=== PATIENT | female | born 1995 | race Caucasian/White ===

== ENCOUNTER → 2020-10-16 10:57 | Outpatient (BNVA) | payer BC, SELFPAY | PROVIDERS: Visit Provider Advanced Practice Midwife | DX: Z76.89 Persons encountering health services in other specified circumstances (principal) ==

== ENCOUNTER 2020-10-25 10:42 | Outpatient (REF) | payer BC, SELFPAY ==
--- NOTE | 2020-10-25 10:49 | US_ITS ---
EXAMINATION: OBSTETRICAL ULTRASOUND, FIRST TRIMESTER HISTORY: 25-year-old with secondary amenorrhea Viability evaluation LMP: 09/16/2020 COMPARISON: None TECHNIQUE: Real time transabdominal imaging with color and M-mode Doppler. Transvaginal ultrasound was performed using an endovaginal probe. FINDINGS: Small intrauterine gestational sac measuring 0.3 x 0.34 cm is seen. The mean sac diameter corresponds to a 4.6 weeks of gestation. There is no yolk sac or embryo. This can be consistent with very early gestational age. Right ovary is within normal limits. The scope was consistent last period GESTATIONAL AGE: 1. GA from LMP: 5.4 wks 2. GA from AUA: 4.6 wks ESTIMATED DATE OF DELIVERY: 1. BECKIE from LMP: 06/23/2021 2. BECKIE from AUA: 06/28/2021 US/US OB <= 14 weeks fetus IMPRESSION: 1. Empty intrauterine gestational sac is seen. 2. No yoke sac or embryonic pole seen, which is c/w GA. Too early to exclude MAB. Recommend serial beta hCG titers and/or f/u in approximately 1-2 wks. Thank you very much for this referral.
--- NOTE | 2020-10-25 10:49 | US_ITS ---
EXAMINATION: OBSTETRICAL ULTRASOUND, FIRST TRIMESTER HISTORY: 25-year-old with secondary amenorrhea Viability evaluation LMP: 09/16/2020 COMPARISON: None TECHNIQUE: Real time transabdominal imaging with color and M-mode Doppler. Transvaginal ultrasound was performed using an endovaginal probe. FINDINGS: Small intrauterine gestational sac measuring 0.3 x 0.34 cm is seen. The mean sac diameter corresponds to a 4.6 weeks of gestation. There is no yolk sac or embryo. This can be consistent with very early gestational age. Right ovary is within normal limits. The scope was consistent last period GESTATIONAL AGE: 1. GA from LMP: 5.4 wks 2. GA from AUA: 4.6 wks ESTIMATED DATE OF DELIVERY: 1. BECKIE from LMP: 06/23/2021 2. BECKIE from AUA: 06/28/2021 US/US OB transvaginal IMPRESSION: 1. Empty intrauterine gestational sac is seen. 2. No yoke sac or embryonic pole seen, which is c/w GA. Too early to exclude MAB. Recommend serial beta hCG titers and/or f/u in approximately 1-2 wks. Thank you very much for this referral.
== END 2020-10-25 10:43 | disposition home or self-care (01) ==
LOC: HO.US 10:42
PROVIDERS: Visit Provider Advanced Practice Midwife
DX: Z33.1 Pregnant state, incidental (principal); Z3A.01 Less than 8 weeks gestation of pregnancy
CPT/HCPCS: 76801; 76817

== ENCOUNTER 2020-11-04 10:17 | Outpatient (REF) | payer BC, SELFPAY ==
[2020-11-04 12:11] LABS: HCG Quantitative 2218 mIU/mL
== END 2020-11-04 10:18 | disposition home or self-care (01) ==
LOC: HO.LAB 10:17
PROVIDERS: Visit Provider Advanced Practice Midwife
DX: Z3A.01 Less than 8 weeks gestation of pregnancy (principal)
CPT/HCPCS: 84702

== ENCOUNTER 2020-11-06 08:56 | Outpatient (REF) | payer BC, SELFPAY ==
[2020-11-06 10:14] LABS: HCG Quantitative 2538 mIU/mL
--- NOTE | 2020-11-06 15:04 | US_ITS ---
EXAMINATION: US OBSTETRICAL ULTRASOUND CLINICAL INFORMATION: Z3A.01 - Less than 8 weeks gestation of . Empty intrauterine sac on prior ultrasound. Follow-up. COMPARISON: Obstetrical ultrasound 10/25/2020. TECHNIQUE: Ultrasound of the maternal pelvis is performed using transabdominal transducer. M-mode Doppler is also performed. FINDINGS: There is a single intrauterine gestational sac with circumferential decidual ring and average sac dimension 0.77 cm corresponding to a of 5 weeks 3 days. There is no visible yolk sac or embryo at this time. Prior ultrasound showed gestational sac under 0.4 cm. The uterus measures 10.2 x 3.8 x 5.0 cm. MATERNAL ADNEXA: The right maternal ovary measures 2.5 x 1.4 x 2.1 cm. The left maternal ovary measures 2.7 x 1.9 x 2.9 cm. There is small left corpus luteum measuring only 2.0 x 1.3 x 1.4 cm. There is no significant maternal adnexal mass. No maternal pelvic ascites. Preliminary report called to office ([facility]) at 1543 hours for provider Mirian Dorsey CNM on 11/06/2020. Patient directed to OB office following ultrasound. US/US OB <= 14 weeks fetus IMPRESSION: 1. Single intrauterine gestational sac with average sac dimension 0.8 cm corresponding to a of 5 weeks 3 days. No visible yolk sac or embryo at this time. 2. Prior sac dimension under 0.4 cm on ultrasound 10/25/2020. 3. Small left maternal corpus luteum 2.0 x 1.3 x 1.4 cm. No maternal pelvic ascites.. 4. Recommend follow-up beta hCG and ultrasound in one-2 weeks.
== END 2020-11-06 08:57 | disposition home or self-care (01) ==
LOC: HO.LAB 08:56
PROVIDERS: Visit Provider Advanced Practice Midwife
DX: O20.0 Threatened abortion (principal); Z3A.01 Less than 8 weeks gestation of pregnancy
CPT/HCPCS: 76801; 84702

== ENCOUNTER → 2021-02-10 11:01 | Outpatient (BNVA) | payer BC, SELFPAY | PROVIDERS: Visit Provider Obstetrics & Gynecology ==

== ENCOUNTER 2021-02-17 10:28 | Outpatient (REF) | payer BC, SELFPAY ==
--- NOTE | ~2021-02-17 | US_ITS ---
EXAMINATION: US OBSTETRICAL ULTRASOUND CLINICAL INFORMATION: Recent miscarriage. Irregular bleeding. COMPARISON: None this . LMP: 01/07/2021. Gestational age by maternal dates is 5 weeks 6 days. Estimated date of delivery by maternal dates is 10/14/2021. TECHNIQUE: Transabdominal and transvaginal first trimester OB ultrasound FINDINGS: The uterus is normal in size and shape and measures 9.2 x 4.5 x 5.8 cm in dimension. There is an intrauterine gestational sac and yolk sac. Mean sac diameter measures 0.9 cm suggesting gestational age of 5 weeks 4 days. There may be identification of a pole. This measures 0.1 cm. Flicker of heart activity is seen. This is is not able to document on M-mode. The cervix is normal appearing. MATERNAL ADNEXA: The right maternal ovary measures 3.6 x 2.9 x 2.2 cm. Tthere is a 1.5 x 1.1 x 1.3 cm right complex cyst. The left maternal ovary measures 2.7 x 1.9 x 1.7 cm. There is no significant maternal adnexal mass. No maternal pelvic ascites. US/US OB <= 14 weeks fetus IMPRESSION: Single intrauterine gestation with yolk sac and question pole. heart flicker is seen but not able to be documented on M-mode. Mean sac diameter suggests gestational age of 5 weeks 4 days.
--- NOTE | ~2021-02-17 | US_ITS ---
EXAMINATION: US OBSTETRICAL ULTRASOUND CLINICAL INFORMATION: Recent miscarriage. Irregular bleeding. COMPARISON: None this . LMP: 01/07/2021. Gestational age by maternal dates is 5 weeks 6 days. Estimated date of delivery by maternal dates is 10/14/2021. TECHNIQUE: Transabdominal and transvaginal first trimester OB ultrasound FINDINGS: The uterus is normal in size and shape and measures 9.2 x 4.5 x 5.8 cm in dimension. There is an intrauterine gestational sac and yolk sac. Mean sac diameter measures 0.9 cm suggesting gestational age of 5 weeks 4 days. There may be identification of a pole. This measures 0.1 cm. Flicker of heart activity is seen. This is is not able to document on M-mode. The cervix is normal appearing. MATERNAL ADNEXA: The right maternal ovary measures 3.6 x 2.9 x 2.2 cm. Tthere is a 1.5 x 1.1 x 1.3 cm right complex cyst. The left maternal ovary measures 2.7 x 1.9 x 1.7 cm. There is no significant maternal adnexal mass. No maternal pelvic ascites. US/US OB transvaginal IMPRESSION: Single intrauterine gestation with yolk sac and question pole. heart flicker is seen but not able to be documented on M-mode. Mean sac diameter suggests gestational age of 5 weeks 4 days.
== END 2021-02-17 10:29 | disposition home or self-care (01) ==
LOC: HO.US 10:28
PROVIDERS: Visit Provider Obstetrics & Gynecology
DX: O09.291 Supervision of pregnancy with other poor reproductive or obstetric history, first trimester (principal); O26.891 Other specified pregnancy related conditions, first trimester; N92.5 Other specified irregular menstruation; Z3A.01 Less than 8 weeks gestation of pregnancy
CPT/HCPCS: 76801; 76817

== ENCOUNTER → 2021-02-21 10:07 | Outpatient (BNVA) | payer BC, SELFPAY | PROVIDERS: Visit Provider Obstetrics & Gynecology | DX: O21.9 Vomiting of pregnancy, unspecified (principal); R11.0 Nausea ==

== ENCOUNTER 2021-02-25 12:52 | Outpatient (REF) | payer BC, SELFPAY ==
--- NOTE | ~2021-02-25 | US_ITS ---
EXAMINATION: US OBSTETRICAL FOLLOW UP WITH BIOPHYSICAL PROFILE CLINICAL INFORMATION: Confirm viability. COMPARISON: Ultrasound OB 02/17/2021 TECHNIQUE: Real time transabdominal imaging with color and M-mode Doppler. FINDINGS: The uterus is anteverted measuring 8.5 cm in length, 4.9 cm in AP. There is a single live intrauterine fetus with a crown-rump length of 0.71 cm corresponding to 6 weeks and 5 days and BECKIE of 11/03/2021. There is visualization of yolk sac. The heart rate measures 1 33 bpm. No motion seen. The right ovary is visualized measuring 3.1 x 2.4 x 3.2 cm. There is an echogenic, possibly a cyst measuring 2.3 x 1.9 x 1.9 seen. The left ovary measures 2.9 x 1.5 x 2.4 cm and appears unremarkable. US/US OB follow up IMPRESSION: Single live intrauterine fetus with ultrasound gestational age of 6 weeks and 5 days and BECKIE of 10/16/2021. heart rate measures 133 bpm. There is a small corpus luteal cyst right ovary.
--- NOTE | ~2021-02-25 | US_ITS ---
EXAMINATION: US OBSTETRICAL FOLLOW UP WITH BIOPHYSICAL PROFILE CLINICAL INFORMATION: Confirm viability. COMPARISON: Ultrasound OB 02/17/2021 TECHNIQUE: Real time transabdominal imaging with color and M-mode Doppler. FINDINGS: The uterus is anteverted measuring 8.5 cm in length, 4.9 cm in AP. There is a single live intrauterine fetus with a crown-rump length of 0.71 cm corresponding to 6 weeks and 5 days and BECKIE of 11/03/2021. There is visualization of yolk sac. The heart rate measures 1 33 bpm. No motion seen. The right ovary is visualized measuring 3.1 x 2.4 x 3.2 cm. There is an echogenic, possibly a cyst measuring 2.3 x 1.9 x 1.9 seen. The left ovary measures 2.9 x 1.5 x 2.4 cm and appears unremarkable. US/US OB transvaginal IMPRESSION: Single live intrauterine fetus with ultrasound gestational age of 6 weeks and 5 days and BECKIE of 10/16/2021. heart rate measures 133 bpm. There is a small corpus luteal cyst right ovary.
== END 2021-02-25 12:53 | disposition home or self-care (01) ==
LOC: HO.US 12:52
PROVIDERS: Visit Provider Obstetrics & Gynecology
DX: O36.80X0 Pregnancy with inconclusive fetal viability, not applicable or unspecified (principal); Z3A.00 Weeks of gestation of pregnancy not specified
CPT/HCPCS: 76816; 76817

== ENCOUNTER 2021-03-02 14:56 | Emergency (ER) | payer BC, SELFPAY ==
--- NOTE | ~2021-03-02 | US_ITS ---
EXAMINATION: US OBSTETRICAL FOLLOW UP WITH BIOPHYSICAL PROFILE CLINICAL INFORMATION: Vaginal bleeding. Less than 6 weeks . Recent miscarriage. COMPARISON: Most recent OB ultrasound dated 02/25/2021. TECHNIQUE: Real time transabdominal imaging with color and M-mode Doppler. FINDINGS: Single intrauterine gestational sac with a pole and, crown rump length measuring 1.3 cm, corresponding to a gestational age of 7 weeks 4 days. The heart rate is 155 bpm. There is an unremarkable yolk sac. No evidence of subchorionic hemorrhage. The right ovary is sonographically unremarkable measuring 2.9 x 2.8 x 2.6 cm for a volume of 10.8 mL. The left ovary is sonographically unremarkable measuring 2.7 x 1.7 x 1.5 cm for a volume of 3.5 mL. No pelvic free fluid. US/US OB follow up IMPRESSION: Single live intrauterine gestation with an estimated gestational age of 7 weeks 4 days and BECKIE of 10/15/2021. heart rate of 155 bpm. No evidence of subchorionic hemorrhage.
[2021-03-02 14:57] VITALS: BP 131/74; PULSE 82; RESP 16; TEMP 36.6; O2SAT 100; BMI 22.4
[2021-03-02 15:17] LABS: Glucose Urine UA NEG (NEG); Leukocyte Esterase Urine NEG (NEG); Nitrite Urine NEG (NEG); Specific Gravity - Urine >= 1.030 (1.005-1.025); Urine Blood NEG (NEG); Urine Ketones 40 MG/DL (NEG); Urine Protein NEG (NEG-TRACE)
[2021-03-02 15:18] LABS: Appearance Urine CLEAR; Color Urine YELLOW
[2021-03-02 18:01] VITALS: BP 117/64; PULSE 74; RESP 16; TEMP 37.1; O2SAT 74
--- NOTE | 2021-03-02 18:18 | ED.NAVMDI ---
HPI - Nausea/Vomiting/Diarrhea General Chief complaint: Abdominal Pain Stated complaint: NAUSEA VOMITING DEHYDRATION Source: patient Mode of arrival: ambulatory Limitations: no limitations History of Present Illness HPI Narrative: 26-year-old female presents with hyperemesis gravidarum, 3 para 1 miscarriage 1. Patient has seen her corrugated sheet material sheeter several times, has been given multiple p.o. medications with poor effect. Patient also states to have post coital bleeding and some spotting. She is unable to eat or drink, and will vomit small sips of water. She did not describe any fevers or chills, abdominal cramping, vaginal discharge, chest pain or pressure, palpitations, shortness breath, edema, weakness, lightheadedness, dysuria, hematuria, or trauma. MD elicited complaint: nausea and vomiting Onset (ago): week(s) Description of vomiting: watery Associated nausea: Yes Associated abdominal pain: No Exacerbating factors: eating Relieving factors: none Related Data Previous Rx's Medication Instructions Recorded doxylamine succinate 25 mg tablet 25 mg PO BEDTIME PRN #30 tab 02/21/21 ondansetron 8 mg disintegrating 8 mg PO Q8H PRN #90 tab 02/21/21 tablet pyridoxine (vitamin B6) 25 mg 25 mg PO TID #90 tab 02/21/21 tablet promethazine 12.5 mg tablet 12.5 mg PO Q6H PRN #90 tab 02/27/21 metoclopramide HCl 10 mg 10 mg PO Q6H #60 tab 03/02/21 disintegrating tablet Allergies Allergy/AdvReac Type Severity Reaction Status Date / Time No Known Allergies Allergy Verified 02/10/21 11:19 Review of Systems Review of Systems: Constitutional: No Weight loss, No Fever, No Chills, No Night Sweats, No Fatigue, No Malaise ENT/Mouth: No Hearing loss, No Ear Pain, No Nasal Congestion, No Sinus Pain, No Hoarseness, No sore throat, No Rhinorrhea, No Swallowing Difficulty Eyes: No Eye Pain, No Swelling, No Redness, No Foreign Body, No Discharge, No Vision Changes Cardiovascular: No Chest Pain, No SOB, No Dyspnea on Exertion, No Orthopnea, No Edema, No Palpitations Respiratory: No Cough, No Sputum, No Wheezing, No Smoke Exposure, No Dyspnea Gastrointestinal: Positive Nausea, Positive Vomiting, no Diarrhea, no abdominal Pain, No Hematochezia, No Melena Genitourinary: Positive , Positive irregular post coital bleeding, No Dysuria, No Urinary Frequency, No Hematuria, No Urinary Incontinence, No Urgency, No Flank Pain, No Urinary Flow Changes, No Hesitancy Musculoskeletal: No joint pain, No Myalgias, No Joint Swelling Skin: No Skin Lesions, No rash Neuro: No Weakness, No Numbness, No Paresthesias, No Loss of Consciousness, No Dizziness, No Headache Psych: No Anxiety/Panic, No Depression, No SI/HI/AH/VH, No Social Issues Heme/Lymph: No Bruising, No Bleeding,No Lymphadenopathy Endocrine: No Polyuria, No Polydipsia, No Temperature Intolerance Yes all other systems are reviewed and are negative Gastrointestinal: Gastrointestinal: Reports nausea PMFSH Past Medical History Attestation statement: The following information was validated with the patient. Source: old records reviewed Family History Family History Sister Diabetes Social History Social History Alcohol intake: current Alcohol intake frequency: holidays/special occasions only Smoking Status: Never smoker Advance Directives: No Advance Directives Information Provided: No Gender identity: female Physical Exam Vital Signs: Vital Signs: Last Vital Signs Temp 98.4 F 03/02/21 20:26 Pulse 79 03/02/21 20:52 Resp 14 03/02/21 20:52 BP 98/63 03/02/21 20:52 Pulse Ox 100 03/02/21 20:52 Body Mass Index 22.4 Appearance: Alert. Oriented X3. No acute distress. Eyes: Pupils equal, round and reactive to light. ENT: Pharynx normal. Neck: Normal inspection. Neck supple. CVS: Normal heart rate and rhythm. Pulses normal. Respiratory: No respiratory distress. Breath sounds normal. Abdomen: Soft and nontender. Skin: Skin warm and dry. Normal skin color. Normal skin turgor. Extremities: No lower extremity edema. Neuro: No motor deficit. No sensory deficit. Course Course Course Narrative: 26-year-old female 3 para 1 miscarriage 1 presents with hyperemesis gravidarum. Has been seen by her OBGYN recently and given multiple prescriptions, Zofran, Reglan which she has not picked up yet, vitamins B6. Patient states that none of the p.o. medications are helpful. She has had multiple ultrasounds over the past few weeks, and states that she is concerned about her babies well-being because of a miscarriage in November and that she is experiencing post coital bleeding. Ultrasound on February 17 and February 25 were normal, plan is to repeat pelvic ultrasound, provide 2 L of normal saline, Reglan and Benadryl. Patient states to have minimal relief from the Reglan and Benadryl, states to feel better about hydration. Ultrasound is normal, shows a intrauterine with heart rate of 155. Patient was advised to continue to take medications that were prescribed by her OBGYN, to keep appointments as scheduled, and to return for any further difficulty. Patient verbalized understanding of and agrees to plan of care discharge home. MDM - Nausea/Vomiting/Diarrhea MDM Narrative Medical decision making narrative: Hyperemesis gravidarum Medical Records Attestation: I reviewed the patient's medical records. Lab Data Attestation: I reviewed the patient's lab results. Result diagrams: 03/02/21 18:49 03/02/21 18:49 Labs: Lab Results 03/02/21 03/02/21 03/02/21 Range/Units 15:05 18:49 18:49 WBC 6.2 (4.8-10.8) X10*3/uL RBC 3.67 L (4.20-5.50) X10*6/uL Hgb 11.6 L (12.0-16.0) g/dl Hct 32.6 L (37-47) % MCV 88.8 (80-98) fL MCH 31.6 (27.0-33.0) pg MCHC 35.6 H (31.0-35.0) g/dl RDW 11.6 (11.0-16.0) % Plt Count 262 (160-400) X10*3/uL MPV 9.1 L (9.4-12.3) fL Immature Gran % (Auto) 0.2 (0.0-0.4) % Neut % (Auto) 64.2 (45-73) % Lymph % (Auto) 26.1 (20-40) % [place] % (Auto) 8.2 (2-11) % Eos % (Auto) 1.0 (0-4) % Baso % (Auto) 0.3 (0-2) % Lymph # (Auto) 1.6 (1.2-4.9) X10*3/uL [place] # (Auto) 0.5 (0.1-1.2) X10*3/uL Eos # (Auto) 0.1 (0.0-0.4) X10*3/uL Baso # (Auto) 0.0 (0.0-0.2) X10*3/uL Abs Immat Gran (auto) 0.01 (0.00-0.03) X10*3/uL Absolute Neuts (auto) 4.0 (2.0-8.3) X10*3/uL Absolute Nucleated RBC 0.000 (0.0-0.012) X10*3/uL Nucleated RBC % (auto) 0.0 (0.0-0.2) /100WBC Sodium 138 (135-145) mmol/L Potassium 3.7 (3.3-5.1) mmol/L Chloride 106 (96-108) mmol/L Carbon Dioxide 22 (22-29) mmol/L Anion Gap 14 (12-20) BUN 9 (9-16) mg/dL Creatinine 0.64 (0.5-1.4) mg/dL Estim Creat Clear Calc 114.0 Estimated GFR > 60 Random Glucose 84 (60-115) mg/dL Calcium 8.9 (8.4-10.2) mg/dL Urine Color YELLOW Urine Appearance CLEAR Urine pH 6.0 (5.0-8.0) Ur Specific [place] >= 1.030 H (1.005-1.025) Urine Protein NEG (NEG-TRACE) MG/DL Urine Glucose (UA) NEG (NEG) MG/DL Urine Ketones 40 (NEG) MG/DL Urine Blood NEG (NEG) Urine Nitrite NEG (NEG) Ur Leukocyte Esterase NEG (NEG) Imaging Data Ultrasound : Attestation: I personally reviewed and interpreted this imaging study as follows: Radiologist's impression: EXAMINATION: XR CHEST CLINICAL INFORMATION: Abdominal pain. COMPARISON: Most recent chest radiograph dated 01/16/2021. TECHNIQUE: Frontal view of the chest was obtained. FINDINGS: The lungs are clear. The cardiomediastinal silhouette is normal in size. There is no pleural effusion or pneumothorax. No acute osseous abnormality. XR/XR chest 1V IMPRESSION: No acute cardiopulmonary findings. Discharge Plan Discharge Clinical Impression: Hyperemesis gravidarum Patient Disposition: Home, Self-Care Instructions: Hyperemesis Gravidarum (ED) Additional Instructions: You were evaluated for nausea and vomiting during 1st trimester of . Please take the medications that were prescribed to you by Dr. Hdz. Your transvaginal 1st trimester pelvic ultrasound showed a normal intrauterine with a heartbeat of 155. Thank you for choosing this emergency department for evaluation. Please follow-up with primary care physician as needed. Return to the emergency department for any new, concerning, or worsening symptoms. Prescriptions: No Action promethazine 12.5 mg tablet 12.5 mg PO Q6H PRN (Reason: nausea and vomiting) Qty: 90 RF: 2 metoclopramide HCl 10 mg tablet,disintegrating 10 mg PO Q6H Qty: 60 RF: 3 pyridoxine (vitamin B6) 25 mg tablet 25 mg PO TID Qty: 90 RF: 4 doxylamine succinate 25 mg tablet 25 mg PO BEDTIME PRN (Reason: sleep) Qty: 30 RF: 11 ondansetron 8 mg tablet,disintegrating 8 mg PO Q8H PRN (Reason: nausea and vomiting) Qty: 90 RF: 3 Referrals: Shreya Hdz MD [Primary Care Provider] - 2 days (Hyperemesis gravidarum) Interventions: ED Discharge Assessment Last Done: 03/02/21 21:04 Discharge Date/Time: 03/02/21 21:05
--- NOTE | 2021-03-02 18:30 | PC.NURSE ---
PT HERE FOR NAUSEA AND VOMITING. DENIES ABD PAIN. STATES HUNGRY. 8 WEEKS . NO OB COMPLAINTS. IV STARTED, BLOOD DRAWN.
[2021-03-02 18:56] LABS: MANUAL DIFF FLAG NO
[2021-03-02] MEDS: 0.9 % Sodium Chloride 1,000 ML 999 ML IVCONT ×2 (18:57→19:51)
[2021-03-02 18:59] LABS: Basophils Percent Auto 0.3 % (0-2); Eosinophils Absolute Auto 0.1 X10*3/uL (0.0-0.4); Hematocrit 32.6 % (37-47); Hemoglobin 11.6 g/dl (12.0-16.0); Imm Gran Abs Auto 0.01 X10*3/uL (0.00-0.03); Imm Gran Pct Auto 0.2 % (0.0-0.4); Lymphocytes Absolute Auto 1.6 X10*3/uL (1.2-4.9); Lymphocytes Percent Auto 26.1 % (20-40); Mean Corpuscular HGB Conc 35.6 g/dl (31.0-35.0); Mean Corpuscular Hemoglobin 31.6 pg (27.0-33.0); Mean Corpuscular Volume 88.8 fL (80-98); Mean Platelet Volume 9.1 fL (9.4-12.3); Monocytes Absolute Auto 0.5 X10*3/uL (0.1-1.2); Monocytes Percent Auto 8.2 % (2-11); Neutrophils Percent Auto 64.2 % (45-73); Platelet Count 262 X10*3/uL (160-400); Red Blood Count 3.67 X10*6/uL (4.20-5.50); Red Cell Distribution Width 11.6 % (11.0-16.0); White Blood Count 6.2 X10*3/uL (4.8-10.8)
[2021-03-02] MEDS: Metoclopramide HCl 10 MG/2 ML VIAL IVPUSH (19:17)
[2021-03-02] MEDS: diphenhydrAMINE HCL 50 MG/ML VIAL 12.5 MG IVPUSH (19:18)
[2021-03-02 19:22] LABS: Anion Gap 14 (12-20); Blood Urea Nitrogen 9 mg/dL (9-16); Calcium 8.9 mg/dL (8.4-10.2); Carbon Dioxide 22 mmol/L (22-29); Chloride 106 mmol/L (96-108); Estimated Glomerular Filt Rate > 60; Glucose Random 84 mg/dL (60-115); Potassium 3.7 mmol/L (3.3-5.1); Sodium 138 mmol/L (135-145)
[2021-03-02 20:26] VITALS: TEMP 36.9
[2021-03-02 20:52] VITALS: BP 98/63; PULSE 79; RESP 14; O2SAT 100
== END 2021-03-02 21:05 | disposition home or self-care (01) ==
PROVIDERS: Nurse Practitioner Family; Emergency Provider Internal Medicine; PCP Obstetrics & Gynecology
DX: O21.0 Mild hyperemesis gravidarum (principal); R10.9 Unspecified abdominal pain; E86.0 Dehydration; Z3A.00 Weeks of gestation of pregnancy not specified; Z79.899 Other long term (current) drug therapy
CPT/HCPCS: 36415; 76816; 80048; 81003; 85025; 96365; 96375; 99284; J1200; J2765

== ENCOUNTER → 2021-03-11 13:54 | Outpatient (BNVA) | payer BC, SELFPAY | PROVIDERS: Visit Provider Obstetrics & Gynecology | DX: Z34.91 Encounter for supervision of normal pregnancy, unspecified, first trimester (principal); Z3A.09 9 weeks gestation of pregnancy | CPT/HCPCS: 99212 ==

== ENCOUNTER 2021-03-11 18:44 | Emergency (ER) | payer BC, SELFPAY ==
[2021-03-11 19:32] VITALS: BP 107/64; PULSE 99; RESP 18; TEMP 36.3; O2SAT 99; BMI 21.9
[2021-03-11 20:00] LABS: Glucose Urine UA NEG (NEG); Leukocyte Esterase Urine NEG (NEG); Nitrite Urine NEG (NEG); Specific Gravity - Urine >= 1.030 (1.005-1.025); Urine Blood NEG (NEG); Urine Ketones 40 MG/DL (NEG); Urine Protein NEG (NEG-TRACE)
[2021-03-11 20:03] LABS: Color Urine YELLOW
[2021-03-11 20:04] LABS: Appearance Urine HAZY
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
[2021-03-12] VITALS: BP 111/71; PULSE 92; RESP 16; O2SAT 97
[2021-03-12] MEDS: 0.9 % Sodium Chloride 1,000 ML 999 ML IVCONT (00:03)
[2021-03-12] MEDS: ondansetron HCL 4 MG/2 ML VIAL IVPUSH (00:07)
[2021-03-12 00:08] LABS: Basophils Percent Auto 0.2 % (0-2); Eosinophils Absolute Auto 0.1 X10*3/uL (0.0-0.4); Hematocrit 30.3 % (37-47); Hemoglobin 10.9 g/dl (12.0-16.0); Imm Gran Abs Auto 0.02 X10*3/uL (0.00-0.03); Imm Gran Pct Auto 0.2 % (0.0-0.4); Lymphocytes Absolute Auto 1.1 X10*3/uL (1.2-4.9); Lymphocytes Percent Auto 12.5 % (20-40); MANUAL DIFF FLAG NO; Mean Corpuscular Hemoglobin 31.7 pg (27.0-33.0); Mean Corpuscular Volume 88.1 fL (80-98); Mean Platelet Volume 9.1 fL (9.4-12.3); Monocytes Absolute Auto 0.6 X10*3/uL (0.1-1.2); Monocytes Percent Auto 6.6 % (2-11); Neutrophils Absolute Auto 7.3 X10*3/uL (2.0-8.3); Neutrophils Percent Auto 79.5 % (45-73); Platelet Count 239 X10*3/uL (160-400); Red Blood Count 3.44 X10*6/uL (4.20-5.50); Red Cell Distribution Width 11.9 % (11.0-16.0); White Blood Count 9.1 X10*3/uL (4.8-10.8)
[2021-03-12 00:29] LABS: Anion Gap 12 (12-20); Blood Urea Nitrogen 6 mg/dL (9-16); Carbon Dioxide 24 mmol/L (22-29); Chloride 103 mmol/L (96-108); Creatinine Clr Calc Pharmacy 117.6; Estimated Glomerular Filt Rate > 60; Glucose Random 83 mg/dL (60-115); Potassium 3.9 mmol/L (3.3-5.1); Sodium 135 mmol/L (135-145)
[2021-03-12 01:47] VITALS: BP 106/63; PULSE 80; RESP 16; O2SAT 96
== END 2021-03-12 01:52 | disposition home or self-care (01) ==
PROVIDERS: Emergency Provider Internal Medicine
DX: O21.1 Hyperemesis gravidarum with metabolic disturbance (principal); Z3A.09 9 weeks gestation of pregnancy
CPT/HCPCS: 36415; 80048; 81003; 85025; 96361; 96374; 99284; J2405

== ENCOUNTER 2021-03-21 09:16 | Emergency (ER) | payer BC, SELFPAY ==
--- NOTE | ~2021-03-21 | US_ITS ---
EXAMINATION: FIRST TRIMESTER OB ULTRASOUND CLINICAL INFORMATION: Nausea and vomiting and lower abdominal cramping.. COMPARISON: Previous exam most recent 03/02/2021 TECHNIQUE: Transabdominal first trimester OB ultrasound FINDINGS: LMP 01/07/2021. Gestational age by LMP is 10 weeks 3 days with estimated date of delivery of 10/14/2021. There is an intrauterine gestational sac. [place]-rump length measures 3.5 cm suggesting gestational age of 10 weeks 3 days with estimated date of delivery of 10/14/2021. heart rate is 170 bpm. A yolk sac is not seen. No fluid collection adjacent to the gestational sac is seen. The maternal ovaries are normal-appearing. The right ovary measures 3.4 x 2.3 x 1.7 cm and the left ovary measures 1.8 x 1.2 x 1.7 cm. There is no fluid in the pelvis. US/US OB limited IMPRESSION: Single viable intrauterine . From today's measurements, gestational age is estimated at 10 weeks 3 days with estimated date of delivery of 10/14/2021.
[2021-03-21 09:44] VITALS: BP 114/65; PULSE 87; RESP 18; TEMP 36.8; O2SAT 100; BMI 26.6
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
[2021-03-21 09:58] LABS: MANUAL DIFF FLAG NO
[2021-03-21 09:59] LABS: Basophils Percent Auto 0.4 % (0-2); Eosinophils Absolute Auto 0.1 X10*3/uL (0.0-0.4); Eosinophils Percent Auto 1.8 % (0-4); Hematocrit 32.9 % (37-47); Hemoglobin 11.6 g/dl (12.0-16.0); Imm Gran Abs Auto 0.03 X10*3/uL (0.00-0.03); Imm Gran Pct Auto 0.5 % (0.0-0.4); Lymphocytes Absolute Auto 1.1 X10*3/uL (1.2-4.9); Lymphocytes Percent Auto 18.9 % (20-40); Mean Corpuscular HGB Conc 35.3 g/dl (31.0-35.0); Mean Corpuscular Hemoglobin 31.4 pg (27.0-33.0); Mean Corpuscular Volume 89.2 fL (80-98); Mean Platelet Volume 8.8 fL (9.4-12.3); Monocytes Absolute Auto 0.4 X10*3/uL (0.1-1.2); Monocytes Percent Auto 6.8 % (2-11); Neutrophils Percent Auto 71.6 % (45-73); Platelet Count 260 X10*3/uL (160-400); Red Blood Count 3.69 X10*6/uL (4.20-5.50); Red Cell Distribution Width 12.3 % (11.0-16.0); White Blood Count 5.6 X10*3/uL (4.8-10.8)
[2021-03-21] MEDS: diphenhydrAMINE HCL 50 MG/ML VIAL IVPUSH (10:04)
[2021-03-21] MEDS: Metoclopramide HCl 10 MG/2 ML VIAL IVPUSH (10:04)
[2021-03-21] MEDS: 0.9 % Sodium Chloride 1,000 ML 999 ML IVCONT (10:04)
[2021-03-21 10:10] LABS: INTERNATIONAL NORM RATIO 1.1 (0.9-1.1); Prothrombin Time 12.9 SEC (10.8-13.0)
[2021-03-21 10:17] LABS: Ethanol < 10 mg/dL
[2021-03-21 10:24] LABS: Alanine Aminotransferase 11 U/L (0-31); Albumin Level 4.1 g/dL (3.5-5.0); Alkaline Phosphatase 45 U/L (39-117); Anion Gap 13 (12-20); Aspartate Amino Transferase 17 U/L (5-31); Bilirubin Total 0.7 mg/dL (0.0-1.0); Blood Urea Nitrogen 9 mg/dL (9-16); Calcium 9.3 mg/dL (8.4-10.2); Carbon Dioxide 24 mmol/L (22-29); Chloride 104 mmol/L (96-108); Creatinine Clr Calc Pharmacy 128.5; Estimated Glomerular Filt Rate > 60; Glucose Random 97 mg/dL (60-115); Lipase 45 U/L (8-78); Potassium 4.1 mmol/L (3.3-5.1); Sodium 137 mmol/L (135-145); Total Protein 6.9 g/dL (6.5-8.0)
[2021-03-21 10:26] LABS: Glucose Urine UA NEG (NEG); Leukocyte Esterase Urine NEG (NEG); Nitrite Urine NEG (NEG); PH 7.5 (5.0-8.0); Specific Gravity - Urine 1.015 (1.005-1.025); Urine Blood NEG (NEG); Urine Ketones NEG (NEG); Urine Protein 1+ MG/DL (NEG-TRACE)
[2021-03-21 10:28] LABS: Appearance Urine CLOUDY; Color Urine YELLOW
[2021-03-21 10:35] LABS: Amorphous Sediment Urine 3+ /LPF; RBC Urine 0 /HPF (0); Squamous Epithelial Cell Urine 2+ /LPF; WBC Urine 0 /HPF (0-4)
[2021-03-21 10:46] LABS: Influenza A PCR NEGATIVE (Negative); Influenza B PCR NEGATIVE (Negative); Resp Syncy Virus RNA Qual PCR NEGATIVE (Negative); SARS COV2 PCR INHOUSE NEGATIVE (Negative)
[2021-03-21] MEDS: Dextrose 5 % and 0.9 % NaCl 1,000 ML 250 ML IVCONT (11:02)
[2021-03-21 11:17] VITALS: BP 98/56; PULSE 74; RESP 16; O2SAT 100
== END 2021-03-21 14:20 | disposition home or self-care (01) ==
PROVIDERS: Physician Assistant Medical; Emergency Provider Emergency Medicine; PCP Internal Medicine
DX: O21.0 Mild hyperemesis gravidarum (principal); Z3A.10 10 weeks gestation of pregnancy; Z20.822 Contact with and (suspected) exposure to COVID-19
CPT/HCPCS: 0241U; 36415; 76815; 80053; 80320; 81001; 83690; 83735; 84702; 85025; 85610; 96361; 96365; 96366; 96375; 99283; 99291; J1200; J2765

== ENCOUNTER 2021-03-25 08:59 | Outpatient (REF) | payer BC, SELFPAY ==
[2021-03-26 04:14] LABS: CT PCR NOT DETECTED (Not Detect.); NG PCR NOT DETECTED (Not Detect.)
== END 2021-03-25 09:00 | disposition home or self-care (01) ==
LOC: HO.LAB 08:59
PROVIDERS: Visit Provider Advanced Practice Midwife
DX: O21.0 Mild hyperemesis gravidarum (principal); Z3A.11 11 weeks gestation of pregnancy
CPT/HCPCS: 81003; 87491; 87591; 88142; 99212

== ENCOUNTER 2021-03-28 11:21 | Outpatient (REF) | payer BC, SELFPAY ==
--- NOTE | ~2021-03-28 | US_ITS ---
EXAMINATION: OBSTETRICAL ULTRASOUND, FIRST TRIMESTER HISTORY: EXAMINATION: OBSTETRICAL ULTRASOUND, FIRST TRIMESTER HISTORY: 26-year-old at 11.3 weeks gestation NT screening COMPARISON: 03/21/2021 TECHNIQUE: Real time transabdominal imaging with color and M-mode Doppler. FINDINGS: A single, live IUP CRL of 45.8 mm c/w 11.3wks is noted. Heart Rate: 169 beats per minute. Normal yolk sac seen. NT was 0.9.mm. NB Present The embryo appears sonographically wnl for this GA. Both maternal ovaries are seen and appear normal. GESTATIONAL AGE: 1. Established GA: 11.3 wks 2. GA from [facility]: 11.3 wks ESTIMATED DATE OF DELIVERY: 1. Established BECKIE: 10/14/2021 2. BECKIE from [facility]: 10/14/2021 US/US OB 1T nuc measure IMPRESSION: 1. Single live IUP 2. Size equals dates 3. NT of 0.9 mm MFM Consultation: I reviewed the ultrasound findings along with significance of NT measurement. The NT of less than 3mm is generally reassuring. However, the sensitivity for T21 detection is only 60%. I reviewed the availability of serum aneuploidy screening which includes cell-free DNA and placental protein based tests. I discussed the sensitivity, false-positive rate, and other limitations associated with each test. I also reviewed the availability of invasive diagnostic tests that are associated small but definite risk of miscarriage. We also reviewed the differences between screening tests and diagnostic tests. After our discussion, she opted for the First trimester screening that is based on cell-free DNA or non-invasive testing (NIPT). The result will be faxed to your office in approximately 7 days. A follow up at 18 weeks for survey has been scheduled. Thank you very much for this referral. Total time 20 minutes. The time spent was devoted to counseling the patient about the disease and diagnosis, coordinating care including reviewing her records, pertinent lab data and studies, as well as discussing diagnostic evaluation and workup, plan therapeutic interventions and future disposition of care. This includes any additional research needed to obtain further information in formulating the plan of care of this patient. This note was generated with a voice recognition program. Please excuse any errors which may have been overlooked during my review of this note. Sometimes these errors may affect the content or meaning of a given sentence.
== END 2021-03-28 11:22 | disposition home or self-care (01) ==
LOC: HO.US 11:21
PROVIDERS: Visit Provider Advanced Practice Midwife
DX: Z36.82 Encounter for antenatal screening for nuchal translucency (principal)
CPT/HCPCS: 76813

== ENCOUNTER → 2021-03-31 10:41 | Outpatient (BNVA) | payer BC, SELFPAY | PROVIDERS: PCP Internal Medicine; Visit Provider Obstetrics & Gynecology ==

== ENCOUNTER → 2021-04-22 09:08 | Outpatient (BNVA) | payer BC, SELFPAY | PROVIDERS: PCP Internal Medicine; Visit Provider Obstetrics & Gynecology | DX: Z34.92 Encounter for supervision of normal pregnancy, unspecified, second trimester (principal); Z3A.15 15 weeks gestation of pregnancy | CPT/HCPCS: 81003; 99212 ==

== ENCOUNTER → 2021-05-20 09:03 | Outpatient (BNVA) | payer BC, SELFPAY | PROVIDERS: Visit Provider Advanced Practice Midwife | DX: O21.0 Mild hyperemesis gravidarum (principal); Z3A.19 19 weeks gestation of pregnancy | CPT/HCPCS: 81003; 99212 ==

== ENCOUNTER 2021-05-23 09:22 | Outpatient (REF) | payer BC, SELFPAY ==
--- NOTE | ~2021-05-23 | US_ITS ---
EXAMINATION: US OBSTETRICAL CLINICAL INFORMATION: 26-year-old at 19.3 weeks of gestation Screening for abnormality COMPARISON: 03/28/2021 TECHNIQUE: Real-time transabdominal ultrasound was performed using C1-5 megahertz transducer. FINDINGS: A single, active, fetus is seen in transverse presentation. The placenta is anterior without previa, and the amniotic fluid volume is wnl. MEASUREMENTS: 1. Biparietal Diameter: 4.4 cm; 19.2 wks 2. Occipital Frontal Diameter: 5.9 cm 3. Head Circumference: 16.5 cm; 19.2 wks 4. Abdominal Circumference: 14.1 cm; 19.4 wks 5. Femur Length: 2.9 cm; 19.0 wks 6. Humerus Length: 6 2.9 cm; 19.2 wks 7. Tibia Length: 2.6 cm; 19.2 wks 8. Ulna Length: 2.5 cm; 19.0 wks 9. Lateral ventricle: 0.8 cm 10. Cerebellum: 1.9 cm; 19.3 wks 11. Cisterna Magna: 0.4 cm 12. Nuchal Fold: 4.68 mm 13. Heart Rate: 153 beats per minute Rt ovary: normal Lt ovary: normal Cervical length 5.3 cm on T/A. GESTATIONAL AGE: 1. Established GA: 19.3 wks 2. GA from [facility]: 19.2 wks ESTIMATED DATE OF DELIVERY: 1. Established BECKIE: 10/14/2021 2. BECKIE from [facility]: 10/15/2021 ANATOMY: The visualized anatomy includes but not limited to: 1. Cranium: Normal 2. Intracranial anatomy: cavum septum pellucidi, lateral ventricles, choroid plexus, cerebellum, posterior fossa, third and fourth ventricles. 3. face: orbits, lip/palate, profile, nasal bone 4. Heart: four-chamber view of the heart, ventricular septum, foramen ovale, pulmonary vein, left and right outflow tracts, three-vessel view, 3 vessel trachea view, aortic and ductal arches, situs.. 5. Diaphragm: Normal 6. Abdominal wall: Normal 7. Cord Insertion: Normal 8. Spine: Cervical, thoracic, lumbar, sacral. 9. Stomach: Normal size and shape 10. Right Kidney: Normal 11. Left Kidney: Normal 12. 3 vessel cord: Normal 13. Upper extremity: Open hands, fifth digit. 14. Lower extremity: Tibia, fibula, bilateral feet. 15. Bladder: Normal 16. Genitalia: Female, patient aware US/US OB /maternal detail IMPRESSION: 1. Single, living, intrauterine with appropriate biometry. 2. Normal survey DISCUSSION: I reviewed today's ultrasound findings. We discussed the limitations of ultrasound in diagnosing aneuploidy and other congenital abnormalities. I reviewed the differences between screening test and diagnostic test. Amniocentesis was discussed and declined. She was informed that the baseline incidence of congenital abnormalities is approximately 3-5%. Not all these conditions are diagnosable in utero. RECOMMENDATIONS: 1. Follow-up when necessary. Thank you for allowing me to participate in her care. Total time 20 minutes. The time spent was devoted to counseling the patient about the disease and diagnosis, coordinating care including reviewing her records, pertinent lab data and studies, as well as discussing diagnostic evaluation and workup, plan therapeutic interventions and future disposition of care. This includes any additional research needed to obtain further information in formulating the plan of care of this patient. This note was generated with a voice recognition program. Please excuse any errors which may have been overlooked during my review of this note. Sometimes these errors may affect the content or meaning of a given sentence.
== END 2021-05-23 09:23 | disposition home or self-care (01) ==
LOC: HO.US 09:22
PROVIDERS: Visit Provider Obstetrics & Gynecology
DX: Z34.82 Encounter for supervision of other normal pregnancy, second trimester (principal); Z36.3 Encounter for antenatal screening for malformations
CPT/HCPCS: 76811

== ENCOUNTER → 2021-06-17 09:05 | Outpatient (BNVA) | payer BC, SELFPAY | PROVIDERS: Visit Provider Advanced Practice Midwife | DX: O21.0 Mild hyperemesis gravidarum (principal); Z3A.23 23 weeks gestation of pregnancy | CPT/HCPCS: 81003; 99212 ==

== ENCOUNTER → 2021-07-16 09:38 | Outpatient (BNVA) | payer BC, SELFPAY | PROVIDERS: Visit Provider Advanced Practice Midwife | DX: Z34.82 Encounter for supervision of other normal pregnancy, second trimester (principal); Z3A.27 27 weeks gestation of pregnancy | CPT/HCPCS: 81003; 99212 ==